=== PATIENT | female | born 1985 | race Caucasian/White ===

== ENCOUNTER → 2019-09-06 13:36 | Outpatient (BNVA) | payer OTHER, SELFPAY | PROVIDERS: Family Provider Physician Assistant; PCP Physician Assistant; Visit Provider Specialist | DX: G43.711 Chronic migraine without aura, intractable, with status migrainosus (principal) | CPT/HCPCS: 64615; J0585 ==

== ENCOUNTER → 2020-02-28 10:28 | Outpatient (BNVA) | payer OTHER, SELFPAY | PROVIDERS: Family Provider Physician Assistant; PCP Family Medicine; Visit Provider Specialist | DX: G43.711 Chronic migraine without aura, intractable, with status migrainosus (principal) | CPT/HCPCS: 64615; J0585 ==

== ENCOUNTER → 2020-05-22 11:19 | Outpatient (BNVA) | payer OTHER, SELFPAY | PROVIDERS: Family Provider Physician Assistant; PCP Family Medicine; Visit Provider Specialist | DX: G43.711 Chronic migraine without aura, intractable, with status migrainosus (principal); Z87.891 Personal history of nicotine dependence | CPT/HCPCS: 64615; J0585 ==

== ENCOUNTER → 2020-08-14 14:02 | Outpatient (BNVA) | payer OTHER, SELFPAY | PROVIDERS: Family Provider Physician Assistant; PCP Family Medicine; Visit Provider Specialist | DX: G43.711 Chronic migraine without aura, intractable, with status migrainosus (principal); F31.74 Bipolar disorder, in full remission, most recent episode manic; Z87.891 Personal history of nicotine dependence | CPT/HCPCS: 64615; 96372; J0585 ==

== ENCOUNTER → 2020-11-20 08:12 | Outpatient (BNVA) | payer OTHER, SELFPAY | PROVIDERS: Family Provider Physician Assistant; PCP Family Medicine; Visit Provider Specialist | DX: G43.711 Chronic migraine without aura, intractable, with status migrainosus (principal); F31.74 Bipolar disorder, in full remission, most recent episode manic; Z87.891 Personal history of nicotine dependence | CPT/HCPCS: 64615; 96372; J0585; J1885 ==

== ENCOUNTER → 2021-02-20 10:06 | Outpatient (BNVA) | payer OTHER, SELFPAY | PROVIDERS: Family Provider Physician Assistant; PCP Family Medicine; Visit Provider Specialist | DX: G43.709 Chronic migraine without aura, not intractable, without status migrainosus (principal) | CPT/HCPCS: 64615; J0585 ==

== ENCOUNTER → 2021-05-28 12:30 | Outpatient (BNVA) | payer OTHER, SELFPAY | PROVIDERS: Family Provider Physician Assistant; PCP Family Medicine; Visit Provider Specialist | DX: G43.711 Chronic migraine without aura, intractable, with status migrainosus (principal) | CPT/HCPCS: 64615; J0585 ==

== ENCOUNTER → 2024-08-16 09:43 | Outpatient (BNVA) | payer OTHER, SELFPAY | PROVIDERS: Family Provider Physician Assistant; PCP Family Medicine; Referring Provider Family Medicine; Visit Provider Specialist | DX: G43.711 Chronic migraine without aura, intractable, with status migrainosus (principal); G47.10 Hypersomnia, unspecified | CPT/HCPCS: 99204 ==

== ENCOUNTER → 2025-01-11 13:58 | Outpatient (BNVA) | payer OTHER, SELFPAY | PROVIDERS: Family Provider Physician Assistant; PCP Family Medicine; Visit Provider Specialist | DX: G43.711 Chronic migraine without aura, intractable, with status migrainosus (principal) | CPT/HCPCS: 64615; J0585; J9999 ==

== ENCOUNTER → 2025-05-09 11:45 | Outpatient (BNVA) | payer OTHER, SELFPAY | PROVIDERS: Family Provider Physician Assistant; PCP Family Medicine; Visit Provider Specialist | DX: G43.711 Chronic migraine without aura, intractable, with status migrainosus (principal) | CPT/HCPCS: 64615; J0585; J9999 ==

== ENCOUNTER 2025-05-09 13:54 | Emergency (ER) | payer OTHER, SELFPAY ==
[2025-05-09 13:57] VITALS: BP 102/71; PULSE 88; RESP 16; TEMP 36.9; O2SAT 98; BMI 36.6
[2025-05-09] MEDS: orphenadrine 30 mg/mL Inj 2 mL 60 MG IM (14:32)
[2025-05-09 14:34] LABS: Glucose Urine UA Negative (Normal); Nitrate Urine Negative (Negative); Specific Gravity, Urine 1.020 (1.005-1.030)
[2025-05-09 14:40] LABS: Add Urine Microscopic? YES
--- NOTE | 2025-05-09 14:47 | ED_ITS ---
HPI - Back Pain/Injury General: Chief Complaint: Back Pain/Injury Stated Complaint: low back pain Time Seen by Provider: 05/09/25 13:55 Source: patient Mode of arrival: ambulatory Limitations: no limitations History of Present Illness: Patient is a 39-year-old female with no pertinent past medical history who reports to the emergency department complaining of right lower back pain beginning 5 days ago. She states that it started to cramp up on her without trauma, and she was playing pool with her daughter and when she went to swing the stick it sharp and and pain has been steady since. No midline tenderness, reports history of pelvic fractures from falling off a horse years ago but no previous back surgeries. Pain feels like a soreness, nonradiating, she is not having any symptoms in her legs. No bowel or bladder incontinence or saddle anesthesia. No history of fevers, IV drug use, history of cancer, or history of chronic steroid use. Reporting the pain is currently an 8/10. Overall stable, nontoxic-appearing and does not report taking any medications at home. MD elicited complaint: back pain Onset (ago): day(s) Timing: constant Severity: severe Pain scale (0-10): 8 Exacerbating factors: movement and walking Associated symptoms: Deny abdominal pain, difficulty walking, fecal incontinence, fever(s) or syncope Work related injury: No Related Data Home Medications ?Medication ?Instructions ?Recorded ?Confirmed ondansetron HCl 4 mg tablet 4 mg PO .PRN 09/06/1904/29 (Zofran) albuterol sulfate 90 mcg/actuation inhalation 08/16/24 05/09/25 aerosol inhaler sertraline 150 mg capsule 150 mg PO DAILY 08/16/2407/23 topiramate 100 mg tablet 150 mg PO DAILY 05/09/2507/23 Previous Rx's ?Medication ?Instructions ?Recorded onabotulinumtoxinA 100 unit 100 unit IM ONCE #2 ea solution for injection (Botox) topiramate 100 mg tablet (Topamax) 100 mg PO DAILY #30 tabs 08/21/24 cefdinir 300 mg capsule 300 mg PO BID 7 days #14 cap s 05/09/25 ketorolac 10 mg tablet 10 mg PO Q8H PRN pain 5 days #15 05/09/25 tabs methocarbamol 750 mg tablet 750 mg PO Q8H 5 days #15 t abs 05/09/25 Allergies Allergy/AdvReac Type Severity Reaction Status Date / Time cephalexin (From Keflex) Allergy Unknown Verified 05/09/25 12:00 ciprofloxacin (From Cipro) Allergy Unknown Verified 05/09/25 12:00 Sulfa (Sulfonamide Allergy Unknown Verified 05/09/25 12:00 Antibiotics) Review of Systems General: Reports: 10 or more systems reviewed and unremarkable except in HPI and below Const: Reports: other (denies trauma); Denies: fever(s), change in weight or night sweats Card: Denies: chest pain, lightheadedness or syncope Resp: Denies: dyspnea GI: Denies: abdominal pain or fecal incontinence : Denies: urinary incontinence Musc: Reports: back pain; Denies: neck pain or extremity pain Skin/Breast: Denies: rash or skin pain Neuro: Denies: headache(s), numbness in extremities, weakness in extremities, sensory changes, lack of coordination, difficulty walking, frequent falls or involuntary movements PFSH ED PFSH: Family History Other CAD (coronary artery disease) Cancer Diabetes Hypertension Denies family history of Anesthesia complication Bleeding disorder Social History Smoking and tobacco/nicotine status: current every day tobacco/nicotine user (1-2 per day) Alcohol intake: current Alcohol intake frequency: holidays/special occasions only Substance/Drug Use: never Household members: family Marital status: Current occupational status: employed Physical Exam 2 Const: COMMON NORMALS: no acute distress, patient oriented x3, no limitations, healthy appearing and alert NUTRITIONAL APPEARANCE: obese Resp: COMMON NORMALS: normal respiratory effort, No retractions, No use of accessory muscles and clear to auscultation bilaterally AUSCULTATION: clear to auscultation bilaterally Cardio: COMMON NORMALS: regular rate, regular rhythm, S1 normal heart sound present and S2 normal heart sound present RATE: regular rate RHYTHM: regular rhythm HEART SOUNDS: S1 normal heart sound present and S2 normal heart sound present Back/Pelvis: OTHER: Normal visual examination. No spinous process tenderness or paracervical, parathoracic, or paralumbar tenderness to palpation. Full active range of motion. Extremity: COMMON NORMALS: normal to inspection and full ROM Neuro: COMMON NORMALS: patient oriented x3, moves all extremities, no focal motor deficits, no sensory deficits noted, deep tendon reflexes 2+ bilaterally and gait normal SENSORIUM/ORIENTATION: Yes alert OTHER: L3, L4, L5, and S1 nerve sensations intact. Normal knee jerk and ankle jerk reflexes. Skin: COMMON NORMALS: no rashes or lesions noted GENERAL SKIN EXAM: no rashes or lesions noted Course Vital Signs: Vital signs: Vital Signs Temperature 98.4 F 05/09/25 13:57 Pulse Rate 88 05/09/25 13:57 Respiratory Rate 16 05/09/25 13:57 Blood Pressure 102/71 05/09/25 13:57 Pulse Oximetry 98 05/09/25 13:57 Oxygen Delivery Me thod Room Air 05/09/25 13:57 MDM - Back Pain/Injury Medical Decision Making Patient presented with right lower back pain for 5 days, has been constant no direct trauma and no red flag symptoms with history or on exam. Improvement after IM medications here in the Emergency Department, urinalysis also showing evidence of UTI. I do not suspect any severe etiology, suspect musculoskeletal pain but also could be contributed by her UTI. Will start on antibiotics and have her follow-up with regular provider if she continues to have pain for further imaging. Labs Laboratory Results Urine Color Yellow (Yellow) 05/09/25 14:13 Urine Appearance Cloudy (CLEAR) A 05/09/25 14:13 Urine pH 7.0 (5-7) 05/09/25 14:13 Ur Specific [place] 1.020 (1.005-1.030) 05/09/25 14:13 Urine Protein Trace (Negative) A 05/09/25 14:13 Urine Glucose (UA) Negative (Normal) 05/09/25 14:13 Urine Ketones Negative (Negative) 05/09/25 14:13 Urine Blood Negative (Negative) 05/09/25 14:13 Urine Nitrate Negative (Negative) 05/09/25 14:13 Urine Bilirubin Negative (Negative) 05/09/25 14:13 Urine Urobilinogen 1.0 mg/dL (Negative) 05/09/25 14:13 Ur Leukocyte Esterase 3+ (Negative) A 05/09/25 14:13 Urine RBC 0-2 /hpf (0-2) 05/09/25 14:13 Urine WBC 51-100 /hpf (0-5) H 05/09/25 14:13 Ur Squamous Epith Cells 11-20 /hpf (0-5) H 05/09/25 14:13 Amorphous Sediment Not Reportable 05/09/25 14:13 Urine Bacteria 2+ /hpf (NONE) H 05/09/25 14:13 Hyaline Casts 0-4 /lpf H 05/09/25 14:13 No radiology studies performed this visit Discharge Plan Discharge Patient Disposition: Home Clinical Impression: Musculoskeletal back pain, Urinary tract infection Condition: Stable Prescriptions: New ketorolac 10 mg tablet 10 mg PO Q8H PRN (Reason: pain) 5 Days Qty: 15 0RF methocarbamol 750 mg tablet 750 mg PO Q8H 5 Days Qty: 15 0RF cefdinir 300 mg capsule 300 mg PO BID 7 Days Qty: 14 0RF Discontinued methocarbamol 500 mg tablet 500 mg PO DAILY No Action ondansetron HCl [Zofran] 4 mg tablet 4 mg PO .PRN sertraline 150 mg capsule 150 mg PO DAILY albuterol sulfate 90 mcg/actuation HFA aerosol inhaler inhalation topiramate 100 mg tablet 150 mg PO DAILY Botox 100 unit recon soln 100 unit IM ONCE Qty: 2 5RF topiramate [Topamax] 100 mg tablet 100 mg PO DAILY Qty: 30 3RF Discharge Orders: Discharge ED (Routine); Ordered 05/09/25 Ordered By: Eugenio Borrero Patient Instructions: Patient Portal & [place] Instructions Activity Restrictions/Additional Instructions: Discharge Instructions Diagnosis: - Musculoskeletal back pain - Urinary tract infection (UTI) Medications and Instructions: - Cefdinir 300 mg PO BID for 7 days - Indication: UTI - Take every 12 hours for one week, with or without food. [1] https://dailymed.[employer].nih.gov/bernie lymed/drugInfo.cfm?shzmo=[id number] - Complete the full course, even if symptoms improve early. [1] https://dailymed.[employer].nih.gov/dailymed/drugInfo.cfm ?igrej=[id number] - Do not take antacids containing magnesium or aluminum, or iron supplements, within 2 hours of cefdinir, as these may reduce absorption. [1] https://daily[place]sumac.[employer].[place].gov/dailymed/drugInfo.cfm?fknco=[id number] -[id number] - Common side effects: diarrhea, nausea. If severe diarrhea, especially with blood or fever, occurs, contact a physician promptly. [1] https://daily[place].[employer].nih.gov/dailymed/drugInfo.cfm?ticdi=[id number]-v126 -[id number] - Cefdinir is a beta-lactam antibiotic; while it is an option when first-line agents cannot be used, it generally has lower efficacy for UTI compared to nitrofurantoin, TMP-SMX, or fluoroquinolones, and should be used with caution. [2] https://pubmed.ncbi.nlm.nih.gov/87701146 [3] https://www.idsociety.org/globalassets/idsa/practice-guidelines/cuti/clinical-qu estion-1.pdf [4] https://jamanetwork.com/journals/ebony/ful larticle/10.1001/ebony.2014.39001?utm_source=openevidence&utm_medium=referral [5] https://www.idsociety.org/globalassets/idsa/practice-guidelines/cuti/clinical-qu estion-2.pdf [6] https://[place].[employer].com/meghann/article- lookup/doi/10.1093/meghann/rta397 - If symptoms do not improve after 72 hours, or worsen, follow up for possible resistance or alternative diagnosis. - Ketorolac 10 mg PO TID PRN for up to 5 days - Indication: Musculoskeletal back pain - Take as needed for pain, up to three times daily, for a maximum of five days. [7] https://pubmed.ncbi.nlm.nih.gov/69230599 - NSAIDs are effective for acute musculoskeletal pain; use the lowest effective dose for the shortest duration. [7] https://pubmed.ncbi.[facility].nih.gov/58392599 - Take with food to minimize gastrointestinal upset. - Monitor for side effects: GI bleeding, renal dysfunction, or increased blood pressure. Avoid if history of peptic ulcer disease, renal impairment, or bleeding disorders. - Methocarbamol 750 mg PO TID for 5 days - Indication: Musculoskeletal back pain - Take three times daily for up to five days. [7] https://pubmed.ncbi.[facility].nih.gov/54224913 - Muscle relaxants may provide short-term relief for acute back pain; use for the shortest duration necessary. [7] https://pubmed.ncbi.[facility].nih.gov/75726525 - May cause drowsiness or dizziness; avoid driving or operating heavy machinery until response is known. General Instructions: - Back Pain Management: - In addition to medications, encourage early mobilization, gentle stretching, and avoidance of prolonged bed rest. [7] https://pubmed.ncbi.[facility].nih.gov/68718474 - Apply heat or cold packs as needed. - If pain persists beyond two weeks, or is associated with neurological deficits (e.g., weakness, numbness, loss of bowel/bladder control), seek prompt medical evaluation. - UTI Management: - Increase fluid intake to help flush bacteria from the urinary tract. - Complete the full course of antibiotics, even if symptoms resolve early. [1] https://dailymed.[employer].nih.gov/dailymed/drugInfo.cfm?jbpdn=[id number] -[id number] - If fever, flank pain, vomiting, or worsening symptoms develop, seek medical attention for possible pyelonephritis or complicated UTI. - Follow-Up: - Schedule follow-up if symptoms do not improve within 72 hours, or if adverse effects occur. - Return for evaluation if new or concerning symptoms arise. Precautions: - Medication Interactions: - Avoid antacids and iron supplements within 2 hours of cefdinir. [1] https://dailymed.[employer].nih.gov/dailymed/drugInfo.cfm?noxqk=[id number] -[id number] - Avoid alcohol while taking methocarbamol. - Adverse Effects: - Report severe diarrhea, rash, difficulty breathing, or other allergic reactions immediately. [1] https://daily[place]sumac.[employer].[place].gov/dailym ed/drugInfo.cfm?vggcd=[id number] - Monitor for GI symptoms, renal dysfunction, or bleeding with ketorolac. Patient Education: - Antibiotics are only effective for bacterial infections; do not use for viral illnesses. [1] https://daily[place].[employer].[place].gov/dailymed/drugInfo.cfm?mnngq=[id number] -[id number] - Skipping doses or stopping antibiotics early may lead to treatment failure and resistance. [1] https://[employer]naaya.[employer]drugInfo.cfm?wfeyq=[id number] -[id number] - NSAIDs and muscle relaxants are for short-term symptom relief; use non- pharmacologic strategies as adjuncts.[7] https://pubmed.ncbi.nlm.nih.gov/66296151 Contact Information: - For urgent concerns, contact the clinic or seek emergency care. Summary of Evidence: - NSAIDs and muscle relaxants are supported for acute musculoskeletal pain. [7] https://pubmed.ncbi.nlm.nih.gov/62220642 - Cefdinir is a beta-lactam option for UTI when first-line agents are contraindicated, but has lower efficacy and should be used with caution. [2] https://pubmed.ncbi.nlm.nih.gov/60370787 [3] https://www.idsociety.org/globalassets/idsa/practice-guidelines/cuti/clinical-qu estion-1.pdf [4] https:// jamanetwork.com/journals/ebony/fullarticle/10.1001/ebony.2014.00604?utm_source=ope nevidence&utm_medium=referral [5] https://www.idsociety.org/globalassets/idsa/practice-guidelines/cuti/clinical-qu estion-2.pdf [6] https://[place].[employer].com/meghann/article- lookup/doi/10.1093/meghann/brb655 - Patient counseling on medication adherence and adverse effects is essential. [1] https://dailymed. [employer].nih.gov/dailymed/drugInfo.cfm?qcwip=[id number] References * Cefdinir https://dailymed.[employer].nih.gov/dailymed/drugInfo.cfm?setid =[id number] . Food and Drug Administration. Updated date: 2024-10-12. * Contemporary Management of Uncomplicated Urinary Tract Infections https://pubmed.ncbi.nlm.nih.gov/35872313 . Raoul Browning. 2008;68(9):1169- 205. doi:10.2165/73430535-741716302-06258. * Clinical Practice Guideline by Infectious Diseases Society of [place] (IDSA): 2024 Guideline on Management and Treatment of Complicated Urinary Tract Infections: Selection of Antibiotic Therapy for Complicated UTI https://www.idsociety.org/globalassets/idsa/practice-guideline s/cuti/lurxaipq-hcbmrfjb-2.pdf . Sulma Dias?s WWalt Elizabeth?s- Natalee Jacobs et al. Infectious Diseases Society of [place]. * Diagnosis and Management of Urinary Tract Infections in the Outpatient Setting: A Review https://jamanetwork.com/journals/ebony/fullarticle/10.1001/ebony.2014.83532?utm_ source=openevidence&utm_medium=referral . Halima Martinez, Tea CURRIE, Lucy Mendoza. EBONY. 2014 Jun 19-;312(16):1677-84. doi:10.1001/ebony.2014.47321. * Clinical Practice Guideline by Infectious Diseases Society of [place] (IDSA): 2024 Guideline on Management and Treatment of Complicated Urinary Tract Infections: Timing of Intravenous to Oral Antibiotics Transition for Complicated UTI https://www.idsociety.org/globalassets/idsa/practice-guidelines/cu ti/mveliict-nuqojixv-7.pdf . Sulma Dias?pancho Elizabeth?Natalee Gaspar et al. Infectious Diseases Society of [place]. * International Clinical Practice Guidelines for the Treatment of Acute Uncomplicated Cystitis and Pyelonephritis in Women: A 2010 Update by the Infectious Diseases Society of [place] and the Society for Microbiology and Infectious Diseases https://academic.[employer].com/meghann/article- lookup/doi/10.1093/meghann/jqb684 . Lucy Mendoza, Alex TM, Ganga KG, et al. Clinical Infectious Diseases : An Official Publication of the Infectious Diseases Society of [place]. 2011;52(5):e103-20. doi:10.1093/meghann/omb850. * Medications for Treating Low Back Pain in Adults. Evidence for the Use of Paracetamol, Opioids, Nonsteroidal Anti-Inflammatories, Muscle Relaxants, Antibiotics, and Antidepressants: An Overview for Musculoskeletal Clinicians https://pubmed.ncbi.nlm.nih.gov/34213066 . Lowell LYNCH, [place]. The Journal of Orthopaedic and Sports Physical Therapy. 2021;52(7):425-431. doi:10.2519/jospt.2021.31564. Print Language: Mongolian Coding Level of Care Code ED Controls Project Engineer for Alfonso Landon
[2025-05-09 15:24] VITALS: BP 130/78; PULSE 86; RESP 17; O2SAT 98
== END 2025-05-09 15:25 | disposition home or self-care (01) ==
PROVIDERS: Emergency Provider Physician Assistant
DX: M54.89 Other dorsalgia (principal); N39.0 Urinary tract infection, site not specified; F17.210 Nicotine dependence, cigarettes, uncomplicated
CPT/HCPCS: 81001; 96372; 99284; J1100; J1885; J2360

== ENCOUNTER → 2025-08-08 12:54 | Outpatient (BNVA) | payer OTHER, SELFPAY | PROVIDERS: Visit Provider Specialist | DX: G43.711 Chronic migraine without aura, intractable, with status migrainosus (principal) | CPT/HCPCS: 64615; J0585; J9999 ==